=== PATIENT | male | born 1995 | race Caucasian/White ===

== ENCOUNTER 2018-08-07 18:29 | Emergency (ER) | payer OTHER, SELFPAY ==
[2018-08-07] MEDS ORDERED: NA CHLORIDE 0.9% 1,000 ML ONE ×2 (19:32→20:47)
[2018-08-07] MEDS ORDERED: IBUPROFEN 400 MG TAB ONE (19:32)
[2018-08-07 19:54] LABS: Absolute Lymphocytes (CBC) 0.8 K/uL (0.7-4.9); Absolute Neutrophil 7.2 K/uL (1.8-8.0); Basophils % 0.3 % (0-1.3); Eosinophils % 0.5 % (0-4.4); Hematocrit 45.7 % (39.6-49.0); Lymphocytes % 8.5 % (15.3-44.8); MCV 86.5 fL (80-100); MPV 9.8 fL (7.6-11.3); RBC Red Blood Cell Count 5.28 M/uL (4.33-5.43)
[2018-08-07 20:07] LABS: Protime INR 1.09
[2018-08-07 20:08] LABS: ALT/SGPT 22 U/L (12-78); AST/SGOT 13 U/L (15-37); Albumin 4.3 g/dL (3.4-5.0); Alkaline Phosphatase 94 U/L (45-117); BUN Blood Urea Nitrogen 12 mg/dL (7-18); Bicarbonate 28 mmol/L (21-32); Bilirubin Direct 0.2 mg/dL (0-0.2); Bilirubin Total 0.6 mg/dL (0.2-1.0); CKMB Creatine Kinase MB < 1.0 ng/mL (0.3-3.6); Creatine Phosphokinase 65 U/L (39-308); Glucose Level 97 mg/dL (74-106); Magnesium 2.1 mg/dL (1.8-2.4); NT PRO-BNP 38 pg/mL (<125); Potassium 4.1 mmol/L (3.5-5.1); Protein, Total 8.6 g/dL (6.4-8.2); Sodium Level 137 mmol/L (136-145); Troponin (Emerg Dept Use Only) < 0.02 ng/mL (0.0-0.045)
[2018-08-07 20:14] LABS: Urine Blood TRACE (NEG); Urine Glucose NEGATIVE (NEG); Urine Protein NEGATIVE (NEG); Urine Specific Gravity 1.025 (1.005-1.030); Urine pH 6.5 (5.0-7.0)
[2018-08-07 20:25] LABS: Barbiturates NEGATIVE (NEGATIVE); Benzodiazepines NEGATIVE (NEGATIVE); Cocaine NEGATIVE (NEGATIVE); METHAMPHETAM NEGATIVE (NEGATIVE); Methadone NEGATIVE (NEGATIVE); Opiates NEGATIVE (NEGATIVE); Phencyclidine NEGATIVE (NEGATIVE); THC Cannibis NEGATIVE (NEGATIVE)
--- NOTE | 2018-08-07 20:26 | RAD REPORT ---
EXAM DESCRIPTION: RAD - Chest Single View - 08/07/2018 7:29 pm CLINICAL HISTORY: Cough, fever, chest pain COMPARISON: July 2013 TECHNIQUE: AP portable chest image was obtained 1921 hours . FINDINGS: No peripheral mass or consolidation. Lung markings are not outside of normal range. No sig nificant peribronchial thickening. Heart and vasculature are normal. No measurable pleural effusion a nd no pneumothorax. No gross bony abnormality seen. No acute aortic findings suspected. IMPRESSION: No acute cardiopulmonary process. No significant change from comparison.
[2018-08-07] MEDS ORDERED: ONDANSETRON 4 MG/2 ML VIAL ONE (20:47)
--- NOTE | 2018-08-07 22:09 | ER ---
Nurse's Notes [facility] Name: Pablo Duenas Age: 23 yrs Sex: Male : 1995 Arrival Date: 08/07/2018 Time: 18:31 Bed 14 Private MD: Diagnosis: Other chest pain;Acute bronchitis Presentation: 08/07 18:42 Presenting complaint: Mother states: He was seen in the ER at [facility] last night aj1 for fever, cough, chest pain, and chills. Patient had blood work, CXR, and strep swab done and was diagnosed with a viral illness. Patient states that he is feeling worse today and would like to be re-evaluated. Transition of care: patient was not received from another setting of care. Onset of symptoms was August 06, 2018. Risk Assessment: Do you want to hurt yourself or someone else? Patient reports no desire to harm self or others. Initial Sepsis Screen: Does the patient meet any 2 criteria? HR > 90 bpm. No. Patient's initial sepsis screen is negative. Does the patient have a suspected source of infection? Yes: Other: fever, cough. Care prior to arrival: None. 18:42 Method Of Arrival: Ambulatory aj1 18:42 Method Of Arrival: Ambulatory aj1 18:42 Acuity: SANDHYA 4 aj1 Triage Assessment: 18:48 General: Appears in no apparent distress. uncomfortable, Behavior is calm, cooperative, aj1 appropriate for age. Pain: Complains of pain in mid-sternal area Pain currently is 6 out of 10 on a pain scale. Aggravated by deep breathing and cough. EENT: Reports sore throat. Neuro: Level of Consciousness is awake, alert, obeys commands. Cardiovascular: Patient's skin is warm and dry. Respiratory: Airway is patent Respiratory effort is even, unlabored, Respiratory pattern is regular, symmetrical. GI: Reports nausea. Historical: - Allergies: 18:48 No Known Allergies; aj1 - Home Meds: 18:48 None [Active]; aj1 - PMHx: 18:48 heart valve issue; aj1 - PSHx: 18:48 knee surgery; aj1 - Immunization history:: Flu vaccine is not up to date. - Social history:: Smoking status: Patient/guardian denies using tobacco. - Ebola Screening: : Patient denies travel to an Ebola-affected area in the 21 days before illness onset. Screenin:03 Abuse screen: Denies threats or abuse. Denies injuries from another. Nutritional ao screening: No deficits noted. Tuberculosis screening: No symptoms or risk factors identified. Fall Risk None identified. Assessment: 19:00 General: Appears in no apparent distress. comfortable, Behavior is calm, cooperative, ao appropriate for age. Pain: Complains of pain in Soar throat and headache. Neuro: Level of Consciousness is awake, alert, obeys commands, Oriented to person, place, time, situation, Appropriate for age Moves all extremities. Full function Speech is normal, Facial symmetry appears normal. Cardiovascular: Capillary refill < 3 seconds Patient's skin is warm and dry. Respiratory: Airway is patent Respiratory effort is even, unlabored, Respiratory pattern is regular, symmetrical, Breath sounds are clear bilaterally. GI: Abdomen is non-distended. : No signs and/or symptoms were reported regarding the genitourinary system. EENT: Throat is reddened. Derm: No signs and/or symptoms reported regarding the dermatologic system. Musculoskeletal: No signs and/or symptoms reported regarding the musculoskeletal system. Circulation, motion, and sensation intact. Range of motion: intact in all extremities. 20:05 Reassessment: Patient appears in no apparent distress at this time. Patient and/or ao family updated on plan of care and expected duration. Pain level reassessed. Patient is alert, oriented x 3, equal unlabored respirations, skin warm/dry/pink. Waiting on lab work. Patient has no questions. 21:08 Reassessment: RUSSELL Young at bedside going over POC. Patient and family member agreeing ao with him. 21:10 Reassessment: Patient appears in no apparent distress at this time. Patient and/or ao family updated on plan of care and expected duration. Pain level reassessed. Patient is alert, oriented x 3, equal unlabored respirations, skin warm/dry/pink. Waiting on second troponin. 22:21 Reassessment: DC instructions given to patient and mother. Patient and mother agree ao with the POC and to follow up with PCP and Dr Medina. Mother and patient states the level of care is better here then other hospital and they had some answers. Vital Signs: 18:48 BP 117 / 74; Pulse 104; Resp 18; Temp 99.6(O); Pulse Ox 99% on R/A; Height 6 ft. 0 in. aj1 (182.88 cm); 20:05 BP 112 / 64; Pulse 94; Resp 16; Pulse Ox 98% on R/A; ao 21:10 BP 106 / 64; Pulse 88; Resp 12; Pulse Ox 98% ; Pain 0/10; ao 21:31 Temp 99.3(O); ao 22:21 BP 114 / 63; Pulse 84; Resp 18; Pulse Ox 100% on R/A; Pain 0/10; ao ED Course: 18:31 Patient arrived in ED. as 18:47 Triage completed. aj1 18:48 Arm band placed on Patient placed in an exam room. aj1 18:53 Hector Bearden PA is PHCP. jmm 18:53 Narinder Alfred MD is Attending Physician. m 18:58 Simon Biswas, NADIYA is Primary Nurse. ao 19:02 Patient has correct armband on for positive identification. Pulse ox on. NIBP on. ao 19:28 X-ray completed. Portable x-ray completed in exam room. Patient tolerated procedure az well. 19:29 XRAY Chest (1 view) In Process Unspecified. EDMS 19:30 Initial lab(s) drawn, by me, sent to lab. First set of blood cultures drawn. Inserted cc saline lock: 20 gauge in right antecubital area, using aseptic technique. Blood collected. 19:39 EKG done, by ED staff, reviewed by Hector WELLS. cc 22:08 Ayaan Medina MD is Referral Physician. cp 22:20 No provider procedures requiring assistance completed. IV discontinued, intact, ao bleeding controlled, No redness/swelling at site. Pressure dressing applied. Administered Medications: 19:25 Drug: Motrin 800 mg Route: PO; ao 21:29 Follow up: Response: No adverse reaction ao 19:35 Drug: NS 0.9% 1000 ml Route: IV; Rate: 1 bolus; Site: left antecubital; ao 21:29 Follow up: IV Status: Completed infusion ao 20:45 Drug: NS 0.9% 1000 ml Route: IV; Rate: 1 bolus; Site: right antecubital; lp1 21:28 Follow up: IV Status: Completed infusion; IV Intake: 1000ml ao 20:45 Drug: Zofran 4 mg Route: IVP; Site: right antecubital; lp1 21:28 Follow up: Response: No adverse reaction ao Intake: :28 IV: 1000ml; Total: 1000ml. ao Outcome: 22:08 Discharge ordered by . cp 22:21 Discharged to home ambulatory, with family. ao 22:21 Condition: stable 22:21 Discharge instructions given to patient, Instructed on discharge instructions, follow up and referral plans. Demonstrated understanding of instructions, follow-up care, Prescriptions given X 3. 22:23 Patient left the ED. ao Signatures: Dispatcher [employer] EDRobina Guardado, RN RN aj1 Hector Bearden PA PA jmm Martinez, Amelia as Christian, Chelsea cc Pena, Laura RN RN lp1 Carmelo Nevarez PA PA cp Ortiz, Alex RN RN ao Delfina Acuna
--- NOTE | 2018-08-07 22:09 | EDPHYS ---
Physician Documentation [facility] Name: Pablo Duenas Age: 23 yrs Sex: Male : 1995 Arrival Date: 08/07/2018 Time: 18:31 Bed 14 Private MD: ED Physician Narinder Alfred HPI: 08/07 19:03 This 23 yrs old Male presents to ER via Ambulatory with complaints of Fever, jmm Sore Throat, Headache. 19:03 Onset: The symptoms/episode began/occurred gradually, 5 day(s) ago. Associated signs jmm and symptoms: Pertinent positives: chest pain, cough. This is a 23 year old male with a history of mitral valve prolapse that presents to the ED with chest pain and cough beginning approx 5 days ago. Patient complains of difficulty swallowing. The patient was evaluated at [facility] ED with normal lab and cxr findings. Patient states symptoms worsened earlier today. . Historical: - Allergies: 18:48 No Known Allergies; aj1 - Home Meds: 18:48 None [Active]; aj1 - PMHx: 18:48 heart valve issue; aj1 - PSHx: 18:48 knee surgery; aj1 - Immunization history:: Flu vaccine is not up to date. - Social history:: Smoking status: Patient/guardian denies using tobacco. - Ebola Screening: : Patient denies travel to an Ebola-affected area in the 21 days before illness onset. ROS: 19:03 Eyes: Negative for injury, pain, redness, and discharge. jmm 19:03 Abdomen/GI: Negative for abdominal pain, nausea, vomiting, diarrhea, and constipation, Back: Negative for injury and pain. 19:03 Constitutional: Positive for body aches, chills, fever. 19:03 ENT: Positive for sore throat. 19:03 Respiratory: Positive for cough. 19:03 Abdomen/GI: 19:03 Neuro: Positive for headache. 19:03 All other systems are negative. Exam: 19:03 Head/Face: atraumatic. jmm 19:03 Constitutional: The patient appears alert, awake, anxious, uncomfortable. 19:03 Chest/axilla: Inspection: normal. 19:03 Cardiovascular: Rate: normal, Rhythm: regular, Pulses: no pulse deficits are appreciated. 19:03 Respiratory: the patient does not display signs of respiratory distress, Respirations: normal, Breath sounds: are clear throughout. 19:03 Abdomen/GI: Inspection: abdomen appears normal, Bowel sounds: normal, Palpation: abdomen is soft and non-tender, in all quadrants. 19:03 Back: ROM is normal. 19:03 Skin: Appearance: Color: normal in color, petechiae, not noted. 19:03 Neuro: Orientation: is normal, Mentation: is normal. 19:03 Psych: Behavior/mood is pleasant, cooperative. Vital Signs: 18:48 BP 117 / 74; Pulse 104; Resp 18; Temp 99.6(O); Pulse Ox 99% on R/A; Height 6 ft. 0 in. aj1 (182.88 cm); 20:05 BP 112 / 64; Pulse 94; Resp 16; Pulse Ox 98% on R/A; ao 21:10 BP 106 / 64; Pulse 88; Resp 12; Pulse Ox 98% ; Pain 0/10; ao 21:31 Temp 99.3(O); ao 22:21 BP 114 / 63; Pulse 84; Resp 18; Pulse Ox 100% on R/A; Pain 0/10; ao MDM: 19:03 Patient medically screened. [facility] 19:23 Data reviewed: vital signs, nurses notes. [facility] 20:59 ED course: Patient's current cardiac enzymes are unremarkable. HEART SCORE = 1. D-DIMER [facility] NEGATIVE. SEPSIS MARKERS NORMAL. Patient advised to follow up with cardiology for further evaluation. Given f/u with cardiology. Patient and family given strict return precautions. . 21:04 Transition of care: After a detail discussion of the patient's case, care is [facility] transferred to Carmelo WELLS. 08/07 19:04 Order name: Basic Metabolic Panel; Complete Time: 20:14 [facility] 08/07 19:04 Order name: CBC with Diff; Complete Time: 20:03 [facility] 08/07 19:04 Order name: Ckmb; Complete Time: 20:14 [facility] 08/07 19:04 Order name: CPK; Complete Time: 20:14 [facility] 08/07 19:04 Order name: LFT's; Complete Time: 20:14 [facility] 08/07 19:04 Order name: Magnesium; Complete Time: 20:14 [facility] 08/07 19:04 Order name: NT PRO-BNP; Complete Time: 20:14 [facility] 08/07 19:04 Order name: PT-INR; Complete Time: 20:14 [facility] 08/07 19:04 Order name: Ptt, Activated; Complete Time: 20:14 [facility] 08/07 19:04 Order name: Troponin (emerg Dept Use Only); Complete Time: 20:14 [facility] 08/07 19:04 Order name: D-Dimer; Complete Time: 20:14 [facility] 08/07 19:04 Order name: Russell Screen Profile; Complete Time: 20:03 [facility] 08/07 19:04 Order name: Blood Culture Adult (2) [facility] 08/07 19:04 Order name: Lactate; Complete Time: 20:08 [facility] 08/07 19:04 Order name: XRAY Chest (1 view); Complete Time: 20:27 [facility] 08/07 19:04 Order name: EKG; Complete Time: 19:05 [facility] 08/07 19:04 Order name: Cardiac monitoring; Complete Time: 19:38 [facility] 08/07 19:04 Order name: EKG - Nurse/Tech; Complete Time: 19:37 [facility] 08/07 19:04 Order name: IV Saline Lock; Complete Time: 19:37 [facility] 08/07 19:04 Order name: Labs collected and sent; Complete Time: 19:37 [facility] 08/07 19:04 Order name: O2 Per Protocol; Complete Time: 19:37 [facility] 08/07 19:04 Order name: Procalcitonin; Complete Time: 20:35 [facility] 08/07 19:52 Order name: Urine Drug Screen; Complete Time: 20:27 [facility] 08/07 19:58 Order name: Urine Dipstick--Ancillary (enter results); Complete Time: 20:22 [facility] 08/07 20:35 Order name: Influenza Screen (a \T\ B); Complete Time: 22:08 [facility] 08/07 20:57 Order name: Troponin (emerg Dept Use Only); Complete Time: 22:08 [facility] 08/07 22:08 Interpretation: Reviewed. cp 08/07 19:04 Order name: O2 Sat Monitoring; Complete Time: 19:38 [facility] 08/07 19:04 Order name: Urine Dipstick-Ancillary (obtain specimen); Complete Time: 19:47 [facility] 08/07 20:57 Order name: EKG - Nurse/Tech; Complete Time: 21:28 [place]ena Administered Medications: 19:25 Drug: Motrin 800 mg Route: PO; ao 21:29 Follow up: Response: No adverse reaction ao 19:35 Drug: NS 0.9% 1000 ml Route: IV; Rate: 1 bolus; Site: left antecubital; ao 21:29 Follow up: IV Status: Completed infusion ao 20:45 Drug: NS 0.9% 1000 ml Route: IV; Rate: 1 bolus; Site: right antecubital; lp1 21:28 Follow up: IV Status: Completed infusion; IV Intake: 1000ml ao 20:45 Drug: Zofran 4 mg Route: IVP; Site: right antecubital; lp1 21:28 Follow up: Response: No adverse reaction ao Disposition: 08/08 07:01 Co-signature as Attending Physician, Narinder Alfred MD. rn Disposition: 08/07/18 22:08 Discharged to Home. Impression: Other chest pain, Acute bronchitis. - Condition is Stable. - Discharge Instructions: Acute Bronchitis, Adult, Nonspecific Chest Pain. - Prescriptions for Zithromax Z- Ja 250 mg Oral Tablet - take 1 tablet by ORAL route as directed for 5 days Day 1 - take two (2) tablets one time. Day 2, 3, 4 , 5 take one (1) tablet once daily.; 6 tablet. Medrol (Ja) 4 mg Oral Tablets, Dose Pack - take 1 tablet by ORAL route as directed - follow package instructions; 1 packet. Albuterol Sulfate 90 mcg/actuation - inhale 1-2 puff by INHALATION route every 4-6 hours; 1 Inhaler. - Medication Reconciliation Form, Thank You Letter, Antibiotic Education, Prescription Opioid Use form. - Follow up: Ayaan Medina; When: 1 - 2 days; Reason: Recheck today's complaints, Continuance of care, Re-evaluation by your physician. Signatures: Dispatcher [employer] EDMS Robina Mathis RN RN aj1 Hector Bearden PA PA jmm Nieto, Roman, MD MD rn Pena, Laura, RN RN lp1 Carmelo Nevarez PA PA cp Ortiz, Alex, RN RN ao Corrections: (The following items were deleted from the chart) 08/07 21:07 20:59 ED course: Patient's current cardiac enzymes are unremarkable. HEART SCORE = 1. jmm D-DIMER NEGATIVE. SEPSIS MARKERS NORMAL. [facility] 22:23 22:08 08/07/2018 22:08 Discharged to Home. Impression: Other chest pain; Acute ao bronchitis. Condition is Stable. Discharge Instructions: Acute Bronchitis, Adult, Nonspecific Chest Pain. Prescriptions for Zithromax Z-Ja 250 mg Oral Tablet - take 1 tablet by ORAL route as directed for 5 days Day 1 - take two (2) tablets one time. Day 2, 3, 4 , 5 take one (1) tablet once daily.; 6 tablet, Medrol (Ja) 4 mg Oral Tablets, Dose Pack - take 1 tablet by ORAL route as directed - follow package instructions; 1 packet, Albuterol Sulfate 90 mcg/actuation - inhale 1-2 puff by INHALATION route every 4-6 hours; 1 Inhaler. and Forms are Medication Reconciliation Form, Thank You Letter, Antibiotic Education, Prescription Opioid Use. Follow up: Ayaan Medina; When: 1 - 2 days; Reason: Recheck today's complaints, Continuance of care, Re-evaluation by your physician. cp
[2018-08-07 22:37] VITALS: TEMP 99.3
[2018-08-07 22:38] VITALS: BP 114/63; O2SAT 100
--- NOTE | 2018-08-08 07:02 | EKG ---
Test Date: 2018-08-07 Test Time: 19:32:31 Stenotype Operator: SWETHA MEASUREMENT RESULTS: Intervals: Rate: 95 WI: 118 QRSD: 120 QT: 338 QTc: 424 [place]: P: 66 WI: 118 QRS: 125 T: 37 INTERPRETIVE STATEMENTS: Normal sinus rhythm Right bundle branch block Abnormal ECG Compared to ECG 08/05/2013 15:39:57 Right bundle-branch block now present Sinus arrhythmia no longer present Electronically Signed On 08-08-18 07:01:03 CDT by Ayaan Medina
--- NOTE | 2018-08-09 00:35 | EKG ---
Test Date: 2018-08-07 Test Time: 21:22:03 Financial Operations Clerk: SWETHA MEASUREMENT RESULTS: Intervals: Rate: 80 LA: 110 QRSD: 126 QT: 374 QTc: 431 [place]: P: 4 LA: 110 QRS: -54 T: 26 INTERPRETIVE STATEMENTS: Sinus rhythm with marked sinus arrhythmia with short LA Right bundle branch block Left anterior fascicular block Bifascicular block Inferior infarct, age undetermined Abnormal ECG Compared to ECG 08/07/2018 19:32:31 Short LA interval now present Left anterior fascicular block now present Bifascicular block now present Myocardial infarct finding now present Electronically Signed On 08-09-18 00:32:23 CDT by Ayaan Medina
== END 2018-08-07 22:23 | disposition home or self-care (01) ==
LOC: ER 18:29
DX: J20.9 Acute bronchitis, unspecified (principal); R07.9 Chest pain, unspecified
CPT/HCPCS: 36415; 71045; 80048; 80076; 80307; 81003; 82550; 82553; 83605; 83735; 83880; 84145; 84484; 85025; 85379; 85610; 85730; 86308; 87040; 87804; 93005; 96361; 96374; 99284; J2405; J7030